=== PATIENT | male | born 1945 | race Caucasian/White ===

== ENCOUNTER 2018-05-25 11:35 | Emergency (ER) | payer OTHER ==
[2018-05-25 11:42] VITALS: BP 152/72
--- NOTE | 2018-05-25 12:25 | EDPHY ---
H & P Stated Complaint: Rash on foot x1wk, R cheek and neck red Time Seen by Provider: 05/25/18 12:04 HPI/ROS: CHIEF COMPLAINT: Tender rash HISTORY OF PRESENT ILLNESS: 73-year-old immunocompetent male with up-to-date zoster vaccination complaining of tender rash to the dorsum left foot, upper back and rolls right cheek for the past few days. He was seen at the [facility] in [place] for concerns over possible zoster and this was felt to be less than likely zoster. The areas do not itch. They are tender to palpation. No weeping. No drainage. Denies: Fever, chills, pain with extraocular movements, otalgia, ocular pain, intraoral lesions PRIMARY CARE PROVIDER: REVIEW OF SYSTEMS: 10 systems reviewed and are negative with exception of illness mentioned in the history of present illness PHYSICAL EXAM (Prior to examination, patient consented to physical exam, hands were washed and my usual and customary physical exam procedures followed) 1) GENERAL: Well-developed, well-nourished, alert and oriented. Appears to be in no acute distress. 2) HEAD: Normocephalic 3) HEENT: sclera anicteric 4) LUNGS: Breathing comfortably. 5) SKIN: On the patient's left foot dorsal aspect distal 4th 5th metatarsal he has erythema and excoriated, granulating wounds, there is surrounding induration and erythema with. They do not follow dermatomal distribution. There is no crepitus. Non weeping. On the patient's upper back, not following a dermatomal distribution, he has multiple for furuncular excoriated, granulating wounds and surrounding erythema. On the patient's right cheek he has erythema, induration with no vesicles, no central lesion. No periorbital involvement. No crepitus. Negative Dunn sign. No evidence of Sebastian Villanueva syndrome. No involvement of the ear, no involvement of the scalp, neck, forehead. Symmetrical faces. Extraocular movements are intact with no abnormal gaze or diplopia or pain. No proptosis. - Personal History Current Tetanus/Diphtheria Vaccine: Yes - Medical/Surgical History Hx Asthma: No Hx Chronic Respiratory Disease: No Hx Diabetes: No Hx Cardiac Disease: No Hx Renal Disease: No Hx Cirrhosis: No Hx Alcoholism: No Hx HIV/AIDS: No Hx Splenectomy or Spleen Trauma: No Other PMH: Shingles, ray's palsey, vasectomy, - Social History Smoking Status: Never smoked Constitutional: Initial Vital Signs Temperature (C) 37.1 C 05/25/18 11:39 Heart Rate 83 05/25/18 11:39 Respiratory Rate 16 05/25/18 11:39 Blood Pressure 152/72 H 05/25/18 11:39 O2 Sat (%) 95 05/25/18 11:39 O2 Delivery Mode Room Air Allergies/Adverse Reactions: No Known Allergies Allergy (Unverified 05/25/18 11:39) Home Medications: Medication Instructions Recorded Cephalexin [Keflex] 500 mg PO TID 7 Days cap 05/25/18 Medical Decision Making ED Course/Re-evaluation: I do not think these patient's lesions represent zoster as they are in different body regions and do not followed dermatomal distribution. Furthermore regarding patient's right cheek is erythema induration. Doubt periorbital or orbital cellulitis. Do not think that imaging indicated at this time. Do not think that hospitalization indicated at this time. He does have evidence of cellulitis and I recommended initiation of Keflex monotherapy. His tetanus is up-to-date. No history of cutaneous MRSA. He shares a bed with his and she has had no similar complaints. Patient feels comfortable being discharged. Recommend close follow-up with the [facility] on Monday (today is Monday). Strict return precautions provided. Patient feels comfortable being discharged. All questions and concerns addressed by myself. Patient given my usual and customary discharge precautions and instructions regarding their clinical impression. Care of patient under supervision of secondary supervising physician Dr Hill . Departure - Departure Disposition: Home, Routine, Self-Care Clinical Impression: Cellulitis of right external cheek Condition: Good Instructions: Cellulitis (ED) Additional Instructions: Return to emergency department if you develop worsening of the redness, if you develop pain with eye movements, usual fevers, or any other symptoms that concern you. Referrals: Follow-up, at the [facility] on Monday [Other] - As per Instructions Prescriptions: Cephalexin [Keflex] 500 mg PO TID 7 Days cap
== END 2018-05-25 12:50 | disposition home or self-care (01) ==
DX: L03.211 Cellulitis of face (principal)